=== PATIENT | male | born 1975 | race Caucasian/White ===

== ENCOUNTER → 2024-04-08 12:53 | Outpatient (REF) | payer OTHER, SELFPAY | LOC: DHSLP 12:53 | PROVIDERS: ATTENDING PHYSICIAN Internal Medicine | DX: G47.33 Obstructive sleep apnea (adult) (pediatric) (principal) | CPT/HCPCS: 95806 ==

== ENCOUNTER → 2024-10-11 08:34 | Outpatient (REF) | payer OTHER, SELFPAY | LOC: RCS 08:34 | PROVIDERS: ATTENDING PHYSICIAN Plastic Surgery; FAMILY PHYSICIAN Internal Medicine | DX: Z01.812 Encounter for preprocedural laboratory examination (principal) | CPT/HCPCS: 93005 ==